=== PATIENT | female | born 1930 | race Asian ===

== ENCOUNTER 2017-06-24 02:44 | Emergency (ER) | payer OTHER, MEDICAID ==
[~2017-06-24 02:44] MED LIST: AMLODIPINE BESY10 M1; ASPIR 8181 MG; CRESTOR20 M1; DOK250 MG; DONEPEZIL HCL5 MG; FERROUS GLUCON325 MG PO; FOLIC ACID1 MG; LOVAZA1 G1; MAC100 PO; METOPROLOL TART50 MG; NEURONTIN300 MG; RISACAL-D1 TAB; TRULICITY0.75 MG/0. SQ; VITAMIN C100 M1 PO
[2017-06-24 03:49] LABS: UA SPECIFIC GRAVITY 1.015 (1.005-1.035); microscopic required? YES; urine erythrocyte 1+ (NEGATIVE)
[2017-06-24 03:51] LABS: BASOPHIL % 0.5 % (0-2); PLATELET COUNT 216 x10^3mcL (130-400)
[2017-06-24 03:56] LABS: RED CELL DISTRIBUTION WIDTH 15.2 % (11.5-14.5)
[2017-06-24 04:00] LABS: CALCIUM 8.6 mg/dL (8.5-10.1); CARBON DIOXIDE 25.8 mmol/L (21-32); CHLORIDE SERUM 103 mmol/L (98-107); CREATININE SERUM 1.1 mg/dL (0.6-1.0); GLUCOSE SERUM 132 mg/dL (74-106); POTASSIUM SERUM 4.8 mmol/L (3.5-5.1); SODIUM SERUM 134 mmol/L (136-145)
[2017-06-24 04:05] LABS: ALBUMIN 2.6 g/dL (3.4-5.0); ALKALINE PHOSPHATASE 69 U/L (46-116); ALT/SGPT 42 U/L (14-59); AST/SGOT 21 U/L (15-37); BILIRUBIN TOTAL 0.4 mg/dL (0.20-1.00); TOTAL PROTEIN, SERUM 7.2 g/dL (6.4-8.2)
[2017-06-24 06:06] VITALS: BP 153/112
== END 2017-06-24 06:06 | disposition home or self-care (01) ==
LOC: ED 02:44
PROVIDERS: Emergency Medicine
DX: N39.0 Urinary tract infection, site not specified (principal); E86.0 Dehydration; I10 Essential (primary) hypertension; E11.9 Type 2 diabetes mellitus without complications; E78.00 Pure hypercholesterolemia, unspecified; Z86.73 Personal history of transient ischemic attack (TIA), and cerebral infarction without residual deficits; B37.9 Candidiasis, unspecified; Z79.899 Other long term (current) drug therapy; Z79.84 Long term (current) use of oral hypoglycemic drugs
CPT/HCPCS: J0696; J7030